=== PATIENT | male | born 1960 | race Caucasian/White ===

== ENCOUNTER 2017-08-30 09:36 | Inpatient (IN) | payer BC ==
[~2017-08-30] VITALS: Ht 182.9 cm; Wt 73.7 kg
[2017-08-30 09:38] VITALS: Ht 182.9 cm; Wt 73.7 kg
[2017-08-30 10:24] LABS: BASOPHIL % 1.1 % (0-2); PLATELET COUNT 287 x10^3mcL (130-400); RED CELL DISTRIBUTION WIDTH 14.2 % (11.5-14.5)
[2017-08-30 10:31] LABS: CARBON DIOXIDE 31.4 mmol/L (21-32); CHLORIDE SERUM 104 mmol/L (98-107); CREATININE SERUM 0.9 mg/dL (0.7-1.3); GFR1 > 60 mL/min; GLUCOSE SERUM 156 mg/dL (74-106); POTASSIUM SERUM 4.4 mmol/L (3.5-5.1); SODIUM SERUM 141 mmol/L (136-145)
[2017-08-30 10:38] LABS: ALBUMIN 3.5 g/dL (3.4-5.0); ALKALINE PHOSPHATASE 77 U/L (46-116); ALT/SGPT 37 U/L (16-63); AST/SGOT 18 U/L (15-37); BILIRUBIN TOTAL 0.41 mg/dL (0.20-1.00); TOTAL PROTEIN, SERUM 6.8 g/dL (6.4-8.2)
[2017-08-30] MEDS ORDERED: AMITRIPTYLINE H10 MG PO (11:57)
[2017-08-30 12:53] LABS: FREE T4 1.03 ng/dL (0.76-1.46); FREE THYROXINE INDEX 2.5 ug/dL (1.4-4.5); MAGNESIUM 2.2 mg/dL (1.8-2.4); PHOSPHOROUS 2.8 mg/dL (2.5-4.9); T4(THYROXINE) 7.5 ug/dL (4.7-13.3)
[2017-08-30 13:05] VITALS: BP 139/91
[2017-08-30 13:21] LABS: T3 TOTAL 1.25 ng/mL
[2017-08-30 13:22] LABS: UA SPECIFIC GRAVITY 1.015 (1.005-1.035); microscopic required? YES; urine erythrocyte NEGATIVE (NEGATIVE)
[2017-08-30 13:30] LABS: AMPHETAMINE QUAL UR NONE DETECTED (NEG <=1000)
[2017-08-30 17:28] VITALS: BP 119/84
[2017-08-30 22:14] VITALS: BP 128/88
[2017-08-31 05:33] VITALS: BP 116/74
[2017-08-31 05:55] LABS: BASOPHIL % 0.2 % (0-2); PLATELET COUNT 266 x10^3mcL (130-400)
[2017-08-31 06:20] LABS: CALCIUM 8.6 mg/dL (8.5-10.1); CARBON DIOXIDE 26.9 mmol/L (21-32); CHLORIDE SERUM 113 mmol/L (98-107); CREATININE SERUM 0.8 mg/dL (0.7-1.3); GFR1 > 60 mL/min; GLUCOSE SERUM 86 mg/dL (74-106); POTASSIUM SERUM 4.1 mmol/L (3.5-5.1); SODIUM SERUM 147 mmol/L (136-145)
[2017-08-31 06:36] LABS: RED CELL DISTRIBUTION WIDTH 14.7 % (11.5-14.5)
[2017-08-31 09:56] VITALS: BP 118/79
[2017-08-31 13:16] VITALS: BP 118/79
[2017-08-31 13:39] VITALS: BP 125/80
[2017-08-31] MEDS ORDERED: METOPROLOL SUCC25 M2 PO (16:33)
[2017-08-31] MEDS ORDERED: ASPIRIN ADULT L81 M5 PO (16:33)
[2017-08-31 16:47] VITALS: BP 125/80
== END 2017-08-31 17:10 | disposition home or self-care (01) | DRG 880 ==
LOC: ED 09:36 → DU 11:45
PROVIDERS: Emergency Medicine; Family Medicine
DX: F41.9 Anxiety disorder, unspecified (principal); E87.0 Hyperosmolality and hypernatremia; G90.8 Other disorders of autonomic nervous system; E11.65 Type 2 diabetes mellitus with hyperglycemia; E78.5 Hyperlipidemia, unspecified; Z53.29 Procedure and treatment not carried out because of patient's decision for other reasons
CPT/HCPCS: 83880; 84439; J1885; J2405; J3010; J7030; Q0092